=== PATIENT | female | born 1995 | race Caucasian/White ===

== ENCOUNTER 2020-05-22 14:18 | Outpatient (CLI) | payer BC, MEDICAID, OTHER, SELFPAY ==
--- NOTE | 2020-05-22 14:30 | US_ITS ---
WS: [id number] ULTRASOUND OB LIMITED TECHNIQUE: Limited ultrasound examination of the fetus. CLINICAL INFORMATION: DATING COMPARISON: None. FINDINGS: Cervix is long and closed measuring 4.8cm. pole with [place]-rump length 2.7 cm. Yolk sac is present. heart rate 171 BPM. Right ovary measures 2.1 x 1.4 x 2.4 cm Left ovary measuring 2.4 x 1.5 x 2.6 cm Uterus measures 12.8 x 6.3 x 7.3 cm EGA by ultrasound: 9w4d KATELYN by ultrasound: 12/21/2020 US/US OB <= 14 weeks fetus [id number] IMPRESSION: 1. Single interuterine gestation with pole. 2. Estimated gestational age 9 weeks 4 days. 3. Estimated delivery December 21, 2020.
== END 2020-05-22 14:19 | disposition home or self-care (01) ==
LOC: RAD 14:26
PROVIDERS: PCP Family Medicine; Visit Provider Family Medicine
DX: Z34.91 Encounter for supervision of normal pregnancy, unspecified, first trimester (principal); Z3A.09 9 weeks gestation of pregnancy
CPT/HCPCS: 76801

== ENCOUNTER 2020-07-21 14:51 | Outpatient (CLI) | payer BC, MEDICAID, SELFPAY ==
--- NOTE | 2020-07-21 14:56 | US_ITS ---
WS: [id number] OB ultrasound, 07/21/2020 Clinical Data: Comparison: OB ultrasound, 05/22/2020. Findings: There is a single intrauterine in the breech presentation. The placenta is Anterior and gra de 0. No placenta previa is seen. There is a normal amount of amnionic fluid. The heart rate is 153 beats per minute. Measurements of growth and development: BPD: 4.3 cm HC: 15.8 cm AC: 12.8 cm FL: 2.8 cm The estimated weight is 246 or approximately 9 ounces The estimated gestational age is 18w5d wi th an KATELYN of approximately 12/17/2020. anatomy show a normal stomach, kidneys, bladder, cord insertion, three-vessel cord, entire spin e, lateral cerebral ventricles, cerebellum and cisterna magna. The heart was difficult to image and t he RVOT/LVOT was not well seen. The profile was not well seen in the nose and lips not seen. US/US OB >= 14 weeks fetus [id number] Impression: 1. Single intrauterine in breech presentation. 2. Estimated gestational age 18w5d with an KATELYN of 12/17/2020. 3. heart rate 153 beats per minute.
== END 2020-07-21 14:52 | disposition home or self-care (01) ==
LOC: RAD 14:54
PROVIDERS: PCP Family Medicine; Visit Provider Family Medicine
DX: O32.1XX0 Maternal care for breech presentation, not applicable or unspecified (principal); Z3A.18 18 weeks gestation of pregnancy
CPT/HCPCS: 76805

== ENCOUNTER 2020-09-01 13:17 | Outpatient (CLI) | payer BC, MEDICAID, SELFPAY ==
--- NOTE | 2020-09-01 13:24 | US_ITS ---
WS: [id number] OB ultrasound, 09/01/2020 Clinical Data: FOLLOW UP ON CARDIAC OUTFLOW TRACT PROFILE Comparison: OB ultrasound, 07/21/2020. Findings: The cervix is 3.22 cm and closed. The placenta is anterior. The heart rate is 144 beats per min [place]. anatomy did show the 4 chamber heart, RVOT and LVOT. The lip, nose and profile were unremarkabl [place] [id number] Impression: 1. The heart showed 4 chambers, RVOT and LVOT.. 2. The lip, nose and profile were unremarkable.. 3. heart rate 144 beats per minute.
== END 2020-09-01 13:18 | disposition home or self-care (01) ==
LOC: RAD 13:20
PROVIDERS: PCP Family Medicine; Visit Provider Family Medicine
DX: Z36.89 Encounter for other specified antenatal screening (principal)
CPT/HCPCS: 76816

== ENCOUNTER 2020-12-13 05:02 | Inpatient (IN) | payer BC, MEDICAID, SELFPAY ==
--- NOTE | 2020-11-30 10:30 | ANES.PREANE2 ---
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
[2020-12-13] VITALS (25 sets, daily range): BP systolic 92–160; BP diastolic 56–80; PULSE 55–90; RESP 16; TEMP 36.2–36.7; O2SAT 97–100; BMI 35.3
[2020-12-13 05:44] LABS: Basophils % 0.5 %; Eosinophils # 0.1 10^3/uL (0.0-0.8); Eosinophils % 1.6 %; Hematocrit 37.6 % (37.0-47.0); Hemoglobin 12.4 g/dL (11.5-15.3); Lymphocytes # 2.2 10^3/uL (0.8-4.8); Lymphocytes % 27.1 %; Mean Corpuscular Hemoglobin 29.1 pg (28.0-34.0); Mean Corpuscular Volume 88.3 fL (81-99); Mean Platelet Volume 12.8 fL (7.4-10.4); Monocytes # 0.4 10^3/uL (0.2-0.9); Monocytes % 5.5 %; Neutrophils # 5.18 10^3/uL (1.8-7.7); Neutrophils % 64.9 %; Nucleated Red Blood Cells % 0 %; Platelet Count 192 10^3/cmm (130-400); Red Blood Count 4.26 10^6/uL (4.1-5.3); Red Cell Distribution Width 11.9 % (12.1-15.1)
[2020-12-13] MEDS: lactated ringers 1,000 ML 999 ML IV ×2 (05:50→07:01)
--- NOTE | 2020-12-13 06:55 | PM.HP ---
Providers/Chief Complaint Admitting Physician: Luc Yarbrough MD Primary Care Provider: Luc Yarbrough MD Chief Complaint: Scheduled History of Present Illness Isabela Back is a 25 year old at 39.4 weeks gestation by LMP consistent with 9-week ultrasound. Her is complicated by prior L TCS x2 for protracted labor/arrest of dilation/nonreassuring heart tones, their syncopal episode in early third trimester, GBS positive. The patient feels well at this time. She denies any chest pains, shortness of breath, nausea, vomiting, abdominal pain, dysuria, leakage of fluid, vaginal bleeding. The patient presents for a scheduled repeat low-transverse section. She does not have any concerns at this time and has been in her normal state of health. Medications/Allergies Home Medications Medication Instructions Recorded Confirmed Last Taken Type prenat.vits,zayra,zol-pywb-vixud 1 tab PO DAILY 12/13/20 12/13/20 12/12/20 History [ Vitamin] Allergies Allergy/AdvReac Type Severity Reaction Status Date / Time No Known Allergies Allergy Verified 12/13/20 06:04 PFSH Acute PFSH: Medical History (Updated 12/13/20 @ 06:59 by Luc Yarbrough MD) History of asthma Surgical History (Updated 12/13/20 @ 06:59 by Luc Yarbrough MD) History of [place] teeth removed Social History (Updated 12/13/20 @ 06:59 by Luc Yarbrough MD) Smoking and tobacco status: never smoked Alcohol intake: never Substance/Drug Use: never Female Reproductive History: : 4 Vitals/I&O/Wt Last Vital Signs Temp 97.2 F L 12/13/20 05:19 Pulse 90 12/13/20 05:19 BP 119/56 12/13/20 05:19 Weight last 48 hrs Weight 206 lb Physical Exam Narrative: EXAM NARRATIVE: General: Alert and oriented x3 Eyes: Pupils equal round and reactive to light and accommodation Mouth: Mucous membranes moist, pharynx non-erythematous Cardiac: Regular rate and rhythm without murmurs Lungs: Clear to auscultation bilaterally without wheezes, crackles or rhonchi Abdomen: Soft, non-tender, fundus consistent with gestational age, incisional scar clean and dry Extremities: Trace edema in the bilateral lower extremities Data : 12/13/20 05:30 A&P Additional A&P Information The patient is doing well at this time. We will proceed with repeat low transverse section. All questions were answered. The patient and her are in agreement with the current plan of care. Attestations Medical Necessity Statement*: The patient will be here for greater than 2 midnights due to routine intrapartum and management of labor and delivery. Coding Level of Care Code Acute Mechanical Development Engineer for Garrick Hancock
[2020-12-13] MEDS: citric acid-sodium citrate 30 mL UDC PO (07:00)
--- NOTE | 2020-12-13 07:01 | P.ANESUD_ITS ---
Pre-Anesthetic Update Pre-Anesthetic Assessment: Date of Surgery/Procedure: 12/13/20 Preop Geno gnosis: IUP Proposed Procedure: Operation Date: 12/13/20 07:00 Proposed Procedures p Section(Not Applicable) - Luc Yarbrough MD Last Intake: Intake Last Liquid Date 12/12/20 Last Liquid Time 00:00 Last Solid Date 12/12/20 Last Solid Time 20:00 Labs Last 48hrs: Laboratory Results - last 48 hr 12/13/20 05:30 WBC 8.0 RBC 4.26 Hgb 12.4 Hct 37.6 MCV 88.3 MCH 29.1 MCHC 33.0 RDW 11.9 L Plt Count 192 MPV 12.8 H Neut % (Auto) 64.9 Lymph % (Auto) 27.1 [place] % (Auto) 5.5 Eos % (Auto) 1.6 Baso % (Auto) 0.5 Neut # (Auto) 5.18 Lymph # (Auto) 2.2 [place] # (Auto) 0.4 Eos # (Auto) 0.1 Baso # (Auto) 0.0 Nucleated RBC % (a uto) 0 Nucleated RBCs # 0.0 Vitals: Temperature 97.2 F L 12/13/20 05:19 Temperature Source Skin 12/13/20 05:06 Pulse Rate 90 12/13/20 05:19 Pulse Rhythm 12/13/20 05:11 Respiratory Effort Non-Labored 12/13/20 05:11 Respiratory Depth Normal 12/13/20 05:11 Respiratory Patter n 12/13/20 05:11 Blood Pressure 119/56 12/13/20 05:19 Oxygen Delivery Me thod 12/13/20 05:11 Cardiac Studies: No Data to Display
[2020-12-13] MEDS: famotidine 20 mg/2 mL INJ IVP (07:02)
[2020-12-13] MEDS: metoclopramide 5 mg/mL SDV 2 mL 10 MG IVP (07:02)
--- NOTE | 2020-12-13 09:17 | P.OP_ITS ---
Operative Report Date of procedure: December 13, 2020 Pre-op Diagnosis: IUP Pre-op Diagnosis: 1. Intrauterine at 39.4 weeks gestation 2. Prior low-transverse section x2 3. GBS positive Post-op Diagnosis: 1. Intrauterine status post repeat low transverse section at 39.4 weeks gestation 2. Prior low-transverse section x2 3. GBS positive 4. Delivery of healthy infant male weighing 6 pounds 14 ounces with Apgars of 9 and 9 Post-op Findings: Significant scar tissue around the uterus. Procedure Done: Repeat low transverse section Specimens removed/disposition: Placenta discarded Pathology: none sent Surgeon: Luc Yarbrough Anesthesia: Other (Spinal) Estimated blood loss (mL): 700 Complications: None Condition: stable Disposition: floor Brief History: Isabela Back is a 25 year old G4 now P3 status post repeat low transverse section at 39.4 weeks gestation by LMP consistent with 9-week ultrasound. Her was complicated by prior LTCS x2 for p rotracted labor/arrest of dilation/nonreassuring heart tones, their syncopal episode in early third trimester, GBS positive. The patient presented for a scheduled repeat low transverse section. Procedure: After informed consent was obtained, the patient was taken to the operating room at 7:17 AM and the patient was prepped and draped in a normal sterile fashion in the dorsal supine position. A spinal epidural was placed and adequate anesthesia was confirmed. At 7:39 AM on 12/13/2020, a Pfannenstiel skin incision was made and carried through to the underlying layer of fascia using a scalpel. The fascial incision was then extended laterally using curved Mayos. The fascia was then grasped with Osiris clamps and the underlying rectus muscles were dissected off taking care to avoid injury to the underlying tissues. The peritoneum was entered initially using Metzenbaums to bluntly make an opening. It was then bluntly manually. The bladder blade was placed and the vesicouterine peritoneum was well below the lower uterine segment of the uterus. Significant scar tissue was noted enveloping the uterus. The uterine incision was made in the lower uterine segment in a transverse fashion with the scalpel at 7:47 AM. The amniotic membrane was entered bluntly and a moderate amount of clear fluid was noted. The infant's head delivered atraumatically without difficulty at 7:48 AM. There was no nuchal cord. The mouth and nose were suctioned. The rest of the infant delivered without difficulty. The was crying immediately upon delivery. The cord was clamped and cut and the infant was handed to the awaiting pediatric nurses. The placenta was then manually expressed. The uterus was then exteriorized from the abdomen and a wet lap was used to clear the uterus of clots and debris. The bladder blade was reinserted and the uterine incision was closed using 0 chromic in a running locking fashion. A second layer of the same suture was used in the same manner. Excellent hemostasis was obtained. The scar tissue that was enveloping the uterus was released and hemostasis was obtained. Next the posterior cul-de-sac was inspected and was cleared of any blood. The uterus was then placed back into the abdomen. The gutters were cleared of any further clots and debris and the uterine incision was again inspected and hemostasis was noted. The subfascial tissue was inspected for hemostasis and the peritoneum was re-approximated using 2-0 plain in a running fashion. The fascia was then re-approximated using 0 Vicryl in a running fashion. The subcutaneous tissue was inspected for hemostasis. Ruperto's fascia was then re- approximated using 3-0 plain in a running fashion. Good hemostasis was noted. The subcutaneous tissue was then re-approximated using a subcuticular stitch. The patient tolerated the procedure well and was recovered in stable condition. Estimated blood loss was 700 mL. Urine in the Arreola catheter was clear. The patient was taken to recovery in good condition.
[2020-12-13] MEDS: ondansetron 2 mg/ML SDV 2 mL 4 MG IVP (14:12)
[2020-12-13] MEDS: ketorolac 30 mg/mL INJ IVP ×2 (14:34→20:30)
[2020-12-13] MEDS: dextrose 5%-lactated ringers 1,000 ML 125 ML IV (14:54)
--- NOTE | 2020-12-13 14:59 | ANE.PACU2 ---
Inpatient post-anesthesia follow up: Airway intact: Yes Vital signs: Temperature 97.9 F Pulse Rate 71 Respiratory Rate 16 Blood Pressure 109/68 Pulse Oximetry 98 Oxygen Delivery Me thod Room Air Oxygen Flow Rate Fraction of Inspir ed Oxygen Hydration adequate: Yes Nausea and vomiting: No Pain level: 2 Mental status: Baseline
[2020-12-13] MEDS: docusate sodium 100 mg Capsule PO (18:37)
[2020-12-13 21:41] LABS: Hematocrit 34.4 % (37.0-47.0); Hemoglobin 11.1 g/dL (11.5-15.3); Mean Corpuscular HGB Conc 32.3 g/dL (30.0-36.0); Mean Corpuscular Hemoglobin 29.9 pg (28.0-34.0); Mean Corpuscular Volume 92.7 fL (81-99); Mean Platelet Volume 12.8 fL (7.4-10.4); Platelet Count 184 10^3/cmm (130-400); Red Blood Count 3.71 10^6/uL (4.1-5.3); White Blood Count 11.8 10^3/uL (4.0-10.0)
[2020-12-14 03:00] VITALS: BP 94/57; PULSE 60; RESP 16; TEMP 36.8; O2SAT 96
[2020-12-14] MEDS: ketorolac 30 mg/mL INJ IVP (03:07)
[2020-12-14] MEDS: prenatal vitamin Capsule 1 CAP PO (09:40)
[2020-12-14] MEDS: docusate sodium 100 mg Capsule PO (09:40)
[2020-12-14 09:55] VITALS: BP 96/60; PULSE 86; RESP 16; TEMP 36.6; O2SAT 97
[2020-12-14] MEDS: ibuprofen 800 mg tablet PO (11:20)
--- NOTE | 2020-12-14 12:16 | PM.DCS ---
Discharge Providers Date of Admission: 12/13/20 05:02 Date of Discharge: December 14, 2020 Attending Provider at Admission: Luc Yarbrough MD Attending Provider at Discharge: Luc Yarbrough MD Primary Care Provider: Luc Yarbrough MD Diagnoses at Discharge Discharge Diagnosis (1) Status post section: Status: Acute Other Information Additional DC diagnoses/information: 1. Intrauterine status post repeat low transverse section at 39.4 weeks gestation 2. Prior low-transverse section x2 3. GBS positive 4. Delivery of healthy male weighing 6 pounds 14 ounces with Apgars of 9 and 9 Reason for Visit Reason for Visit: Scheduled Hospital Course Hospital Course The patient was admitted for a scheduled repeat low-transverse section. The patient did have some scar tissue noted around the uterus but there were no complications related to the surgery. The scar tissue was released. The patient has done very well and is ambulating, voiding, passing gas and tolerating food by mouth. Her bleeding is decreasing well. Her pain is under good control. She is breast-feeding. Since she is doing well I gave her the option of discharge home this afternoon and she would prefer to be discharged home today versus waiting until tomorrow. All questions were answered and routine post care instructions were discussed. Patient will follow up with me at 2 weeks and sooner if needed. Physical Exam Narrative: EXAM NARRATIVE: General: Alert and oriented x3 Cardiac: Regular rate and rhythm without murmurs Lungs: Clear to auscultation bilaterally without wheezes, crackles or rhonchi Abdomen: Soft, mild tenderness. Uterus is firm and 3 cm below the umbilicus. Incision is clean and dry without signs of infection or dehiscence. Extremities: Trace edema in the bilateral lower extremities Urinary Catheter Management^: Arreola: Cath Placed During This Visit: yes, but has since been removed by the nurse Reason for Continuing Indwelling Catheter: Decision to DC Catheter Urinary Catheter Date of Insertion: 12/13/20 Urinary Catheter Time of Insertion: 07:27 Date Urinary Catheter Removed: 12/13/20 Time Urinary Catheter Discontinued: 18:00 Discharge Data Data Completed and Pending: Labs from last 24 hours 12/13/20 21:20 WBC 11.8 H RBC 3.71 L Hgb 11.1 L Hct 34.4 L MCV 92.7 MCH 29.9 MCHC 32.3 RDW 12.0 L Plt Count 184 MPV 12.8 H Vitals: Last Vital Signs Temp 98.2 F 12/14/20 03:00 Pulse 60 12/14/20 03:00 Resp 16 12/14/20 03:00 BP 94/57 12/14/20 03:00 Pulse Ox 96 12/14/20 03:00 Discharge Plan Discharge Patient Disposition: Home Condition: Good Prescriptions: New oxycodone-acetaminophen 5-325 mg Tablet 1 tab PO Q6H PRN (Reason: Moderate To Severe Pain) Qty: 10 RF: 0 ferrous sulfate 325 mg (65 mg iron) Tablet,Delayed Release (Dr/Ec) 325 mg PO BIDWM Qty: 30 RF: 0 ibuprofen 800 mg Tablet 800 mg PO TID Qty: 60 RF: 0 Continued Vitamin Tablet 1 tab PO DAILY RF: 0 Discharge Orders: Discharge Order (Routine); Ordered 12/14/20 Ordered By: Luc Yarbrough Referrals: Luc Yarbrough MD [Primary Care Provider] - 2 weeks (Please make a follow up appt with Dr Yarbrough for 2 weeks and 6 weeks . ) Discharge Diet: Advance as tolerated Discharge Activity: Limit activity as instructed Patient Instructions: Section (DC), Pre-eclampsia and Eclampsia (DC), Bleeding (DC), OB Discharge Report, OB Anesthesia Instructions, OB Food/Drug Interaction Guide, OB Home Care, OB Proud Parent Packet Activity Restrictions/Additional Instructions: Do not lift anything heavier than your infant in the car seat for the first 3 weeks, then gradually increase. Nothing per vagina for 6 weeks. If you have any concern for infection in your incision site, please contact Dr. Yarbrough right away. Discharge Attestations Time Spent in Discharge Care*: greater than 30 min Quality Metrics Clinical Quality Measures During this hospital stay, did patient experience: None Coding Level of Care Code Acute Commercial Field Inspector for Chg Fwd Diagnoses Status post section Z98.891
--- NOTE | 2020-12-14 13:43 | PC.NURSE ---
Mom reports is going well. She has contact information.
[2020-12-14 15:30] VITALS: BP 112/74; PULSE 93; RESP 16; TEMP 36.6; O2SAT 95
== END 2020-12-14 15:59 | disposition home or self-care (01) | DRG 788 ==
PROVIDERS: Admitting Provider Family Medicine; PCP Family Medicine; Visit Provider Family Medicine
PROC: 10D00Z1 Extraction of Products of Conception, Low, Open Approach (ICD-10-PCS; CPT 59514; principal; 2020-12-13 07:00)
DX: O34.211 Maternal care for low transverse scar from previous cesarean delivery (principal); Z3A.39 39 weeks gestation of pregnancy; Z37.0 Single live birth; O99.824 Streptococcus B carrier state complicating childbirth
CPT/HCPCS: 12345; 36415; 59409; 85025; 85027; 86900; J1885; J2274; J2370; J2405; J2765; J3490; J7030

== ENCOUNTER → 2022-03-21 15:06 | Outpatient (BNVA) | payer BC, MEDICAID, SELFPAY | PROVIDERS: PCP Family Medicine; Visit Provider Family Medicine | DX: Z34.90 Encounter for supervision of normal pregnancy, unspecified, unspecified trimester (principal) | CPT/HCPCS: 80053; 83735; 85025 ==

== ENCOUNTER → 2022-04-03 09:51 | Outpatient (BNVA) | payer BC, MEDICAID, SELFPAY | PROVIDERS: PCP Family Medicine; Visit Provider Family Medicine | DX: Z34.80 Encounter for supervision of other normal pregnancy, unspecified trimester (principal) | CPT/HCPCS: 82950 ==

== ENCOUNTER 2022-05-01 13:20 | Outpatient (CLI) | payer BC, MEDICAID, SELFPAY ==
[2022-05-01 13:33] VITALS: BMI 44.6
[2022-05-01 13:42] VITALS: BP 114/65; PULSE 100
[2022-05-01 13:57] VITALS: BP 102/57; PULSE 94
--- NOTE | 2022-05-01 14:05 | US_ITS ---
WS: [id number] ULTRASOUND OB LIMITED TECHNIQUE: Limited ultrasound examination of the fetus. CLINICAL INFORMATION: right sided pain COMPARISON: None. FINDINGS: Cervix is long and closed measuring 4.1 cm Single interuterine gestation. presentation is vertex Placental location is anterior. Placenta grade: 0. heart rate 144 BPM. MESERET 10.2 cm just above the 5th percentile for gestational age. US/US OB limited [id number] IMPRESSION: 1. Normal cervix measuring 4.1 CM. 2. Placenta is anterior. Presentation is vertex. 3. Decreased amniotic fluid volume with MESERET 10.2 cm, just above the 5th percen tile for gestational age. Visually this appears decreased compared to March 06, 2022.
[2022-05-01 14:12] VITALS: BP 104/62; PULSE 96
[2022-05-01 14:26] LABS: Blood Urine 2+ (Negative); Glucose Urine UA Norm (Normal); Ketones Urine Negative (Negative); Protein Urine Neg (Negative); Specific Gravity, Urine 1.025 (1.005-1.030); Urine Appearance Clear (CLEAR); Urine Color Yellow (Yellow); pH Urine 6 (5-7)
[2022-05-01 14:27] VITALS: BP 104/61; PULSE 97
[2022-05-01 14:27] LABS: Add Urine Culture? Yes; Bacteria Urine TRACE /hpf; Bilirubin Urine Neg (Negative); Leukocyte Esterase Urine 2+ (Negative); Nitrate Urine Negative (Negative); Urobilinogen Urine Norm (Negative); WBC Urine 0-4 /hpf (0-5)
== END 2022-05-01 15:15 | disposition home or self-care (01) ==
LOC: OPOB 13:26 → OBGYN 13:27
PROVIDERS: PCP Family Medicine; Visit Provider Family Medicine
DX: O26.899 Other specified pregnancy related conditions, unspecified trimester (principal); Z3A.00 Weeks of gestation of pregnancy not specified; R10.9 Unspecified abdominal pain
CPT/HCPCS: 59025; 76815; 81001; 87086; 99211

== ENCOUNTER → 2022-05-30 11:18 | Outpatient (BNVA) | payer BC, MEDICAID, SELFPAY | PROVIDERS: PCP Family Medicine; Visit Provider Family Medicine | DX: Z34.90 Encounter for supervision of normal pregnancy, unspecified, unspecified trimester (principal) | CPT/HCPCS: 85025 ==

== ENCOUNTER → 2022-06-20 12:16 | Outpatient (BNVA) | payer BC, MEDICAID, SELFPAY | PROVIDERS: PCP Family Medicine; Visit Provider Family Medicine | DX: Z34.80 Encounter for supervision of other normal pregnancy, unspecified trimester (principal) | CPT/HCPCS: 87081 ==

== ENCOUNTER 2022-07-01 06:00 | Day surgery (SDC) | payer BC, MEDICAID, SELFPAY ==
--- NOTE | 2022-07-01 10:03 | P.ANESASSM_ITS ---
Pre-Anesthetic Assessment Height/Weight: Height 1.63 m Preop Diagnosis: IUP Familial anesthetic complications: none Was Beta Juni taken within 24 hours: N/A Was Clonidine taken within 24 hours: N/A Social No alcohol and No tobacco Exam alert, oriented x 3, clear to auscultation bilaterally and regular rate & rhythm Airway Submandibular: within normal limits Cervical ROM: within normal limits Mallampati: Class I Dentition: chipped Comments: Comments: Missing some teeth Chipped front teeth History/ROS No significant complaints Pulmonary Asthma (well controlled ) CV/HEM Hx of near syncope with hypotension early 3rd trimester resolved now None reported Hepatic None reported GI None reported Metabolic None reported Musc/skel None reported Neuropsych Headache 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 Risk of > 500 ml blood loss (7ml/kg in children): No Medications/Allergies Home Medications Medication Instructions Recorded Confirmed Last Taken Type prenat.vits,zayra,ncp-drar-ybsno 1 tab PO DAILY 12/13/20 06/29/22 12/12/20 History ferrous sulfate 325 mg (65 mg 325 mg PO BIDWM #30 tabs 12/14/20 06/29/22 Unknown Rx iron) tablet,delayed release Allergies Allergy/AdvReac Type Severity Reaction Status Date / Time benzoin Allergy Intermediate Rash after Verified 05/10/22 12:28 c/s [facility] Anesthesia Medical History History of asthma Surgical History History of [place] teeth removed Social History Smoking and tobacco status: never smoked Alcohol intake: never Data Anesthesia Cardiac Studies: No Data to Display
== END 2022-07-01 06:01 | disposition home or self-care (01) ==
LOC: OPS 08-01 09:41
PROVIDERS: PCP Family Medicine; Visit Provider Family Medicine
DX: Z01.818 Encounter for other preprocedural examination (principal)

== ENCOUNTER 2022-07-08 09:36 | Outpatient (CLI) | payer BC, MEDICAID, SELFPAY ==
[2022-07-08 09:40] VITALS: BMI 38.7
[2022-07-08 09:56] VITALS: RESP 17
[2022-07-08 10:14] VITALS: BP 110/70; PULSE 94
[2022-07-08 10:34] VITALS: BP 103/60; PULSE 93
[2022-07-08 10:40] VITALS: BP 103/60; PULSE 93
== END 2022-07-08 10:40 | disposition home or self-care (01) ==
LOC: OPOB 09:41 → OBGYN 09:42
PROVIDERS: PCP Family Medicine; Visit Provider Family Medicine
DX: O36.8190 Decreased fetal movements, unspecified trimester, not applicable or unspecified (principal); Z3A.00 Weeks of gestation of pregnancy not specified
CPT/HCPCS: 59025; 99211

== ENCOUNTER 2022-07-11 06:28 | Inpatient (IN) | payer BC, MEDICAID, SELFPAY ==
[2022-07-11] VITALS (30 sets, daily range): BP systolic 92–134; BP diastolic 48–74; PULSE 65–104; RESP 14–17; TEMP 35.9–36.9; O2SAT 94–97; BMI 38.7
[2022-07-11] MEDS: lactated ringers 1,000 ML 999 ML IV (06:07)
[2022-07-11 06:09] LABS: Basophils % 0.4 %; Eosinophils # 0.1 10^3/uL (0.0-0.8); Hematocrit 34.5 % (37.0-47.0); Lymphocytes # 1.8 10^3/uL (0.8-4.8); Lymphocytes % 21.7 %; Mean Corpuscular HGB Conc 31.9 g/dL (30.0-36.0); Mean Corpuscular Hemoglobin 26.5 pg (28.0-34.0); Mean Corpuscular Volume 83.1 fl (81-99); Mean Platelet Volume 12.9 fL (7.4-10.4); Monocytes # 0.5 10^3/uL (0.2-0.9); Monocytes % 5.6 %; Neutrophils # 5.91 10^3/uL (1.8-7.7); Neutrophils % 70.7 %; Nucleated Red Blood Cells % 0 %; Platelet Count 194 10^3/cmm (130-400); Red Blood Count 4.15 10^6/uL (4.1-5.3); Red Cell Distribution Width 12.3 % (12.1-15.1); White Blood Count 8.4 10^3/uL (4.0-10.0)
--- NOTE | 2022-07-11 06:45 | P.HP_ITS ---
Providers/Chief Complaint Admitting Physician: Luc Yarbrough MD Primary Care Provider: Luc Yarbrough MD Chief Complaint: repeat History of Present Illness Isabela Back is a 27 year old @ 39.2 weeks by 8 wk US inconsistent with LMP. Her preg is c/b prior LTCSx3 for protracted labor/arrest of dilation/non- reassuring FHT's, low progesterone on supplementation in 1st TM The patient presents for a scheduled repeat low-transverse section. She has had no significant complications. The patient is currently feeling well. She denies any chest pains, shortness of breath, nausea, vomiting, diarrhea, constipation, dysuria, vaginal bleeding, leakage of fluid. Medications/Allergies Home Medications Medication Instructions Recorded Confirmed Last Taken Type prenat.vits,zayra,bav-jaxi-odjjj 1 tab PO DAILY 12/13/20 07/11/22 07/10/22 History ferrous sulfate 325 mg (65 mg 325 mg PO BIDWM #30 tabs 12/14/20 07/04/22 Unknown Rx iron) tablet,delayed release Allergies Allergy/AdvReac Type Severity Reaction Status Date / Time benzoin Allergy Intermediate Rash after Verified 07/11/22 06:04 c/s PFSH Acute PFSH: Medical History History of asthma Surgical History (Updated 07/11/22 @ 06:48 by Luc Yarbrough MD) History of x 3 [place] teeth removed Social History Smoking and tobacco status: never smoked Alcohol intake: never Female Reproductive History: : 6 Vitals/I&O/Wt Last Vital Signs Temp 97.9 F 07/11/22 06:08 Pulse 85 07/11/22 06:33 Resp 14 07/11/22 06:06 BP 130/74 07/11/22 06:33 O2 Del Method 07/11/22 05:42 Weight last 48 hrs Weight 226 lb Physical Exam Narrative: General: Alert and oriented x3 Eyes: Pupils equal round and reactive to light and accommodation Mouth: Mucous membranes moist, pharynx non-erythematous Cardiac: Regular rate and rhythm without murmurs Lungs: Clear to auscultation bilaterally without wheezes, crackles or rhonchi Abdomen: Soft, non-tender, fundus consistent with gestational age Extremities: Trace edema in the bilateral lower extremities Data : 07/11/22 05:57 A&P Assessment and plan (1) Supervision of normal intrauterine in multigravida: The patient is doing well at this time. Vital signs are stable. Her initial hemoglobin is mildly low at 11.2. heart tones are reactive with a category 1 tracing. We will plan to proceed with the repeat low-transverse section. All questions were answered. The patient and her are in agreement with current the plan of care. Status: Acute Attestations Medical Necessity Statement*: The patient will be here for greater than 2 midnights due to routine intrapartum and management of labor and delivery. Coding Level of Care Code Acute Branch Service Representative for Garrick Hancock Diagnoses Supervision of normal intrauterine in multigravida Z34.80
[2022-07-11] MEDS: citric acid-sodium citrate 30 mL UDC PO (06:50)
[2022-07-11] MEDS: ceFAZolin 2,000 MG in sodium chloride 0.9% (plus) 50 ML 100 MG IV (06:50)
[2022-07-11] MEDS: metoclopramide 5 mg/mL SDV 2 mL 10 MG IVP (06:51)
[2022-07-11] MEDS: famotidine 20 mg/2 mL INJ IVP (06:53)
[2022-07-11 06:57] LABS: Rubella IgG 171.7 IU/mL (0.0-10.0)
--- NOTE | 2022-07-11 07:33 | ANES.PAUD2 ---
Documented by User: Miguel Bacon CRNA 07/11/22 07:33 Pre-Anesthetic Update Pre-Anesthetic Assessment: Date of Surgery/Procedure: 07/11/22 Preop Diagnosis: IUP Proposed Procedure: Operation Date: 07/11/22 07:00 Proposed Procedures p Section Repeat(Not Applicable) - Luc Yarbrough MD Any changes to Pre-Anesthetic Assessment?: No Last Intake: Intake Last Liquid Date 07/11/22 Last Liquid Time 00:00 Last Solid Date 07/10/22 Last Solid Time 21:00 Labs Last 48hrs: Short CBC 07/11/22 Range/Units 05:57 WBC 8.4 (4.0-10.0) 10^3/ uL Hgb 11.0 L (11.5-15.3) g/dL Hct 34.5 L (37.0-47.0) % MCV 83.1 (81-99) fl Plt Count 194 (130-400) 10^3/c mm Neut % (Auto) 70.7 % Neut # (Auto) 5.91 (1.8-7.7) 10^3/u L Vitals: Temperature 97.9 F 07/11/22 06:08 Pulse Rate 98 07/11/22 06:48 Pulse Rhythm 07/11/22 05:42 Pulse Strength 3+ Normal 07/11/22 05:42 Respiratory Rate 14 07/11/22 06:06 Respiratory Effort Non-Labored 07/11/22 05:42 Respiratory Depth Normal 07/11/22 05:42 Respiratory Patter n 07/11/22 05:42 Blood Pressure 119/72 07/11/22 06:48 Oxygen Delivery Me thod 07/11/22 05:42 Exam: Pre-Anes Outpt Exam: alert, oriented x 3, clear to auscultation bilaterally and regular rate & rhythm Cardiac Studies: No Data to Display Documented by User: John Barrett DO 07/11/22 14:25 Pre-Anesthetic Update Pre-Anesthetic Assessment: Date of Surgery/Procedure: 07/11/22 Cardiac Studies: No Data to Display
--- NOTE | 2022-07-11 09:02 | P.PCN_ITS ---
PACU note Narrative: VSS, Good respiratory effort, report to GRINDING MACHINE OPERATOR PORTABLE Exam: awake
--- NOTE | 2022-07-11 09:02 | PM.PACU ---
PACU note Narrative: VSS, Good respiratory effort, report to MATERIALS BUYER Exam: awake
--- NOTE | 2022-07-11 09:07 | PM.OP ---
Operative Report Date of procedure: July 11, 2022 Pre-op diagnosis: 1. Intrauterine at 39.2 weeks gestation 2. Prior low-transverse section x3 3. Low progesterone on supplementation first trimester 4. Mild anemia Post-op diagnosis: 1. Intrauterine status post repeat low-transverse section at 39.2 weeks gestation 2. Status post low-transverse section x4 3. Low progesterone on supplementation first trimester 4. Mild anemia 5. Delivery of healthy female weighing 7 pounds 8 ounces with Apgars of 9 and 9 6. Intra-abdominal adhesions Post-op findings: Intact placenta Healthy female weighing 7 pounds 8 ounces with Apgars of 9 and 9 Adhesions wrapping over the anterior uterus Procedure done: 1. Repeat low-transverse section 2. Adhesiolysis of adhesions wrapping over the anterior uterus Specimens removed/disposition: Placenta discarded Surgeon: Luc Yarbrough MD Estimated blood loss (mL): 600 Findings: Isabela Back is a 27 year old G6 now P4 status post repeat low-transverse section @ 39.2 weeks by 8 wk US inconsistent with LMP. Her preg was c/b prior LTCSx3 for protracted labor/arrest of dilation/non-reassuring FHT's, low progesterone on supplementation in 1st TM Brief History: The patient presented for a scheduled repeat low-transverse section. She felt well and was having no acute complications. Procedure: After informed consent was obtained, the patient was taken to the operating room and the patient was prepped and draped in a normal sterile fashion in the dorsal supine position.? A spinal was placed and adequate anesthesia was obtained.? At 7:28 AM on 07/11/2022 a Pfannenstiel skin incision was made and carried through to the underlying layer of fascia using a scalpel.? The fascial incision was then extended laterally using curved Mayos.? Thick scar tissue was noted. The fascia was then grasped with Osiris clamps and the underlying rectus muscles were dissected off taking care to avoid injury to the underlying tissues.? The peritoneum was entered bluntly with one digit.? It was then bluntly.? The bladder blade was placed and the vesicouterine peritoneum was well below the lower uterine segment of the uterus.? The uterine incision was made in the lower uterine segment in a transverse fashion with the scalpel at 7:37 AM.? The placenta was noted to be anterior and the placenta was manually divided. The amniotic membrane was entered bluntly and a small amount of clear fluid was noted.? Uterine pressure was placed and the infant's head delivered without complication at 7:39 AM on 07/11/2022.? There was no nuchal cord.? The mouth and nose were suctioned.? The rest of the infant delivered without difficulty.? The infant took a breath and was crying immediately upon delivery.? The cord was clamped and cut and the infant was handed to the awaiting pediatric nurses.? The placenta was then manually expressed.? The uterus was exteriorized from the abdomen.? A wet lap was used to clear the uterus of clots and debris.? The bladder blade was reinserted and the uterine incision was closed using 0 chromic in a running locking fashion.? The uterus was noted to be firm.? A second layer of the same suture was used in the same manner.? Excellent hemostasis was obtained. A thick band of scar tissue was noted to be adhesed to the anterior uterus that crossed over the superior portion of the uterus. It was relatively avascular. This was divided using electrical cautery. No bleeding was noted. The uterus was placed back into the abdomen without complication. Next the posterior cul-de-sac was inspected and was cleared of any blood. The gutters were cleared of any further clots and debris and the uterine incision was again inspected and hemostasis was noted.? The subfascial tissue was inspected for hemostasis and the peritoneum was re-approximated using 2-0 plain in a running fashion.? The fascia was then re-approximated using 0 Vicryl in a running fashion.? The subcutaneous tissue was inspected for hemostasis.? Ruperto's fascia was then re-approximated using 3-0 plain in a running fashion.? Good hemostasis was noted.? The subcutaneous tissue was then re-approximated using a subcuticular stitch.? The patient tolerated the procedure well and was recovered in stable condition.? Estimated blood loss was 600 mL. Urine in the Arreola catheter was clear. The patient was taken to recovery in good condition.
[2022-07-11] MEDS: ondansetron 2 mg/ML SDV 2 mL 4 MG IVP ×2 (11:34→17:15)
--- NOTE | 2022-07-11 14:25 | ANE.PACU2 ---
Inpatient post-anesthesia follow up: Airway intact: Yes Vital signs: Temperature 96.6 F Pulse Rate 74 Respiratory Rate 14 Blood Pressure 97/53 Pulse Oximetry Oxygen Delivery Me thod Room Air Oxygen Flow Rate Fraction of Inspir ed Oxygen Hydration adequate: Yes Nausea and vomiting: No Pain level: 3 Mental status: Baseline
[2022-07-11] MEDS: ketorolac 30 mg/mL INJ IVP ×2 (15:44→21:05)
[2022-07-11] MEDS: dextrose 5%-lactated ringers 1,000 ML 125 ML IV (15:46)
--- NOTE | 2022-07-11 16:17 | PC.NURSE ---
Patient up to chair without difficulty. bedding changed, more jello given at this time. no further needs. Will continue to monitor. TAMELA GARZA
--- NOTE | 2022-07-11 17:29 | PC.NURSE ---
Patient up to ambulate hallways with standby assist. Patient tolerates activity well. TAMELA RN
[2022-07-11] MEDS: docusate sodium 100 mg Capsule PO (21:05)
[2022-07-11] MEDS: ferrous sulfate EC 325 mg Tablet PO (21:05)
[2022-07-11 22:19] LABS: Hematocrit 27.6 % (37.0-47.0); Hemoglobin 8.5 g/dL (11.5-15.3); Mean Corpuscular HGB Conc 30.8 g/dL (30.0-36.0); Mean Corpuscular Hemoglobin 26.5 pg (28.0-34.0); Mean Platelet Volume 13.1 fL (7.4-10.4); Platelet Count 151 10^3/cmm (130-400); Red Blood Count 3.21 10^6/uL (4.1-5.3); Red Cell Distribution Width 12.5 % (12.1-15.1)
[2022-07-11 22:48] LABS: Positive M 1
--- NOTE | 2022-07-11 23:34 | PC.NURSE ---
While doing vitals on mom I mentioned that around midnight if it was okay with her I could take the baby to the nursery to get her weight and perform her 12 hour testing. She stated that she would prefer that we either wait until tomorrow when her or her can go in the nursery with the baby or perform what we can in the room. She does not want to go with baby tonight as she is tired. I told her I could perform what test I can in the room with her closer to morning and then we can do the rest tomorrow.
[2022-07-12] VITALS (10 sets, daily range): BP systolic 86–121; BP diastolic 53–63; PULSE 74–84; RESP 17–18; TEMP 36.3–36.8; O2SAT 97
[2022-07-12] MEDS: docusate sodium 100 mg Capsule PO ×2 (08:36→18:11)
[2022-07-12] MEDS: ferrous sulfate EC 325 mg Tablet PO ×2 (08:36→18:11)
[2022-07-12] MEDS: ibuprofen 800 mg tablet PO ×3 (08:36→20:55)
[2022-07-12] MEDS: prenatal vitamin Capsule 1 CAP PO (08:36)
--- NOTE | 2022-07-12 14:53 | P.PN_ITS ---
Subjective Subjective: The patient is doing well overall today. Her pain is improving. She is ambulating, voiding, passing gas and tolerating food by mouth. Vitals/I&O/Wt Last Vital Signs Temp 97.3 F L 07/12/22 03:14 Pulse 74 07/12/22 03:14 Resp 18 07/12/22 08:00 BP 108/55 07/12/22 03:14 Pulse Ox 94 07/11/22 09:30 O2 Del Method 07/11/22 09:30 07/11/22 07/12/22 07/12/22 22:59 06:59 14:59 Intake Total 480 / 1680 720 / 2400 Output Total 400 / 950 300 / 1250 Balance 80 / 730 420 / 1150 Weight last 48 hrs Weight 226 lb Physical Exam Narrative: General: Alert and oriented x3 Cardiac: Regular rate and rhythm without murmurs Lungs: Clear to auscultation bilaterally without wheezes, crackles or rhonchi Abdomen: Soft, mild tenderness over uterus. The uterus is firm and 2 cm below the umbilicus. Incision is clean and dry without signs of infection or dehiscence. Extremities: Trace edema in the bilateral lower extremities Urinary Catheter Management: Arreola: Cath Placed During This Visit: yes, but has since been removed by the nurse Reason for Continuing Indwelling Catheter: Decision to DC Catheter Urinary Catheter Date of Insertion: 07/11/22 Urinary Catheter Time of Insertion: 07:20 Date Urinary Catheter Removed: 07/11/22 Time Urinary Catheter Discontinued: 20:21 Data : 07/11/22 21:48 A&P Assessment and plan (1) Status post section: The patient is doing well after having section x4. She is showing no signs of complications. We will continue with routine post care and plan for discharge home tomorrow. All questions were answered. Status: Acute Attestations Medical Necessity Statement*: The patient will be here for greater than 2 midnights due to routine intrapartum and management of labor and delivery. Coding Level of Care Code Acute Unit Coordinator for Garrick Hancock Diagnoses Status post section Z98.891
[2022-07-13] VITALS (7 sets, daily range): BP systolic 94–122; BP diastolic 61–78; PULSE 75–83; RESP 17–18; TEMP 36.6–36.8; O2SAT 96
[2022-07-13] MEDS: ibuprofen 800 mg tablet PO (08:17)
[2022-07-13] MEDS: ferrous sulfate EC 325 mg Tablet PO (08:17)
[2022-07-13] MEDS: docusate sodium 100 mg Capsule PO (08:17)
[2022-07-13] MEDS: prenatal vitamin Capsule 1 CAP PO (08:17)
--- NOTE | 2022-07-13 09:20 | P.DS_ITS ---
Discharge Providers Date of Admission: 07/11/22 06:28 Date of Discharge: July 13, 2022 Attending Provider at Admission: Luc Yarbrough MD Attending Provider at Discharge: Luc Yarbrough MD Primary Care Provider: Luc Yarbrough MD Diagnoses at Discharge Discharge Diagnosis (1) Status post section: Status: Acute Other Information Additional DC diagnoses/information: 1.? Intrauterine status post repeat low-transverse section at 39.2 weeks gestation 2.? Status post low-transverse section x4 3.? Low progesterone on supplementation first trimester 4.? Mild anemia 5.? Delivery of healthy infant female weighing 7 pounds 8 ounces with Apgars of 9 and 9 6.? Intra-abdominal adhesions? Reason for Visit Reason for Visit: repeat Brief History: Isabela Back is a 27 year old G6 now P4 status post repeat low-transverse section @ 39.2 weeks by 8 wk US inconsistent with LMP. Her preg was c/b prior LTCSx3 for protracted labor/arrest of dilation/non-reassuring FHT's, low progesterone on supplementation in . The patient presented for a scheduled repeat low-transverse section. She had no complications at the time of presentation other than GBS positive. Her membranes were intact. Hospital Course Hospital Course The patient had a routine repeat low-transverse section. She also had adhesiolysis for adhesions over the uterus. The patient has had an uncomplicated post course. She is ambulating, voiding, passing gas and tolerating food by mouth. Her pain is well controlled. Her bleeding is decreasing well. I reviewed discharge instructions with the patient and she is in agreement with current plan of care. We will continue with routine care and follow-up in clinic next week. Physical Exam Narrative: General: Alert and oriented x3 Cardiac: Regular rate and rhythm without murmurs Lungs: Clear to auscultation bilaterally without wheezes, crackles or rhonchi Abdomen: Soft, mild tenderness over uterus. The uterus is firm and 2 cm below the umbilicus. Incision is clean and dry without signs of infection or dehiscence. Extremities: Trace edema in the bilateral lower extremities Urinary Catheter Management: Arreola: Cath Placed During This Visit: yes, but has since been removed by the nurse Reason for Continuing Indwelling Catheter: Decision to DC Catheter Urinary Catheter Date of Insertion: 07/11/22 Urinary Catheter Time of Insertion: 07:20 Date Urinary Catheter Removed: 07/11/22 Time Urinary Catheter Discontinued: 20:21 Discharge Data Studies Completed and Pending Laboratory Results WBC 9.0 10^3/uL (4.0-10.0) 07/11/22 21:48 RBC 3.21 10^6/uL (4.1-5.3) L 07/11/22 21:48 Hgb 8.5 g/dL (11.5-15.3) L 07/11/22 21:48 Hct 27.6 % (37.0-47.0) L 07/11/22 21:48 MCV 86.0 fl (81-99) 07/11/22 21:48 MCH 26.5 pg (28.0-34.0) L 07/11/22 21:48 MCHC 30.8 g/dL (30.0-36.0) 07/11/22 21:48 RDW 12.5 % (12.1-15.1) 07/11/22 21:48 Plt Count 151 10^3/cmm (130-400) 07/11/22 21:48 MPV 13.1 fL (7.4-10.4) H 07/11/22 21:48 Neut % (Auto) 70.7 % 07/11/22 05:57 Lymph % (Auto) 21.7 % 07/11/22 05:57 [place] % (Auto) 5.6 % 07/11/22 05:57 Eos % (Auto) 1.0 % 07/11/22 05:57 Baso % (Auto) 0.4 % 07/11/22 05:57 Neut # (Auto) 5.91 10^3/uL (1.8-7.7) 07/11/22 05:57 Lymph # (Auto) 1.8 10^3/uL (0.8-4.8) 07/11/22 05:57 [place] # (Auto) 0.5 10^3/uL (0.2-0.9) 07/11/22 05:57 Eos # (Auto) 0.1 10^3/uL (0.0-0.8) 07/11/22 05:57 Baso # (Auto) 0.0 10^3/uL (0.0-0.1) 07/11/22 05:57 Nucleated RBC % (auto) 0 % 07/11/22 05:57 Nucleated RBCs # 0.0 /100WBC 07/11/22 05:57 Rubella IgG Antibody 171.7 IU/mL (0.0-10.0) H 07/11/22 05:57 Blood Type O Positive 07/11/22 05:57 Rho(D) Type Positive 07/11/22 05:57 Antibody Screen Negative 07/11/22 05:57 Vitals Last Vital Signs Temp 97.9 F 07/13/22 08:18 Pulse 83 07/13/22 08:19 Resp 17 07/13/22 08:28 BP 108/66 07/13/22 08:19 Pulse Ox 96 07/13/22 04:30 O2 Del Method 07/13/22 04:30 Discharge Plan Discharge Patient Disposition: Home Condition: Good Prescriptions: New hydrocodone-acetaminophen 5-325 mg Tablet 1 tab PO Q6H PRN (Reason: Moderate To Severe Pain) Qty: 10 0RF docusate sodium 100 mg Capsule 100 mg PO BID Qty: 30 0RF ibuprofen 800 mg Tablet 800 mg PO TID Qty: 60 0RF Continued prenat.vits,zayra,cdo-lyab-nzibk Tablet 1 tab PO DAILY Qty: 90 0RF ferrous sulfate 325 mg (65 mg iron) Tablet,Delayed Release (Dr/Ec) 325 mg PO BIDWM Qty: 60 0RF Discharge Orders: Discharge Order (Routine); Ordered 07/13/22 Ordered By: Luc Yarbrough Discharge Diet: Regular Discharge Activity: Limit activity as instructed Patient Instructions: Depression (DC), Bleeding (DC), Preeclampsia and Eclampsia After Delivery (GEN), OB Discharge Report, OB Food/Drug Interaction Guide, OB Care at Home, Opioid Safety, OB Your Care - [facility] Activity Restrictions/Additional Instructions: Do not lift anything heavier than your in the car seat for the first 3 weeks, then gradually increase. If having concern for infection in your incision site, please contact Dr. Yarbrough's office right away. Nothing per vagina for 6 weeks. Discharge Attestations Time Spent in Discharge Care*: greater than 30 min Quality Metrics Clinical Quality Measures [ No reported AMI, CVA or VTE this stay] Coding Level of Care Code Acute Chg FW DC note Diagnoses Status post section Z98.891
== END 2022-07-13 10:50 | disposition home or self-care (01) | DRG 788 ==
LOC: OPOB 06:28 → OBGYN 06:30
PROVIDERS: Admitting Provider Family Medicine; PCP Family Medicine; Visit Provider Family Medicine
PROC: 10D00Z1 Extraction of Products of Conception, Low, Open Approach (ICD-10-PCS; CPT 59514; principal; 2022-07-11 07:00)
DX: O34.211 Maternal care for low transverse scar from previous cesarean delivery (principal); Z3A.39 39 weeks gestation of pregnancy; Z37.0 Single live birth; O99.02 Anemia complicating childbirth; D64.9 Anemia, unspecified
CPT/HCPCS: 36415; 51702; 59025; 59409; 85025; 85027; 86762; 86850; 86900; 96374; 96376; J1885; J2274; J2405; J2765; J3010; J3490; J7030

== ENCOUNTER → 2022-07-26 11:14 | Outpatient (BNVA) | payer BC, MEDICAID, SELFPAY | PROVIDERS: PCP Family Medicine; Visit Provider Family Medicine | DX: O86.00 Infection of obstetric surgical wound, unspecified (principal); Z98.891 History of uterine scar from previous surgery | CPT/HCPCS: 87070; 87075; 87077; 87184; 87205 ==

== ENCOUNTER 2022-11-29 16:50 | Emergency (ER) | payer BC, MEDICAID, SELFPAY ==
[2022-11-29 17:06] VITALS: BP 137/83; PULSE 79; RESP 16; TEMP 36.8; O2SAT 99
--- NOTE | 2022-11-29 18:18 | W.ED.ANIMALB ---
HPI - Animal Bite General: Chief Complaint: Animal Bite Stated Complaint: Bite by cat on thumb Time Seen by Provider: 11/29/22 18:10 History of Present Illness: 27-year-old female comes in today for injury to the left thumb. Patient was bit by a cat that she was holding that got spooked by a dog and bit down on her finger. Cat has not had any immunizations. Escape from the family and they were unable to find the cat. Patient has a puncture wound to the left distal thumb. Tetanus is up-to-date. Review of Systems Musc: Reports: extremity pain Skin/Breast: Reports: new lesions [facility] ED PFSH: Medical History History of asthma Surgical History History of x 4 [place] teeth removed Social History Smoking and tobacco status: never smoked Alcohol intake: never Physical Exam Const: COMMON NORMALS: alert HENMT: COMMON NORMALS: normocephalic HEAD & SCALP: normocephalic Resp: COMMON NORMALS: normal respiratory effort Cardio: COMMON NORMALS: regular rate RATE: regular rate Extremity: LEFT UPPER EXTREMITY: Yes hand & digits (Puncture wound to the distal left thumb, minimal damage to nail) Left hand and digits: Yes inspection, Yes palpation and Yes ROM Neuro: SENSORIUM/ORIENTATION: Yes alert Skin: TRAUMA: puncture (Distal left thumb radial nailbed) Course Vital Signs: Vital signs: Vital Signs Temperature 98.2 F 11/29/22 17:06 Pulse Rate 79 11/29/22 17:06 Respiratory Rate 16 11/29/22 17:06 Blood Pressure 137/83 11/29/22 17:06 Pulse Oximetry 99 11/29/22 17:06 Oxygen Delivery Me thod 11/29/22 17:06 MDM - Animal Bite Medical Decision Making Patient comes in today for injury to the left thumb. Patient was bit by a cat that she was holding when a dog came up and spooked the cat causing her to bite her finger and run away. No immunizations were given to the cat. They were unable to retain the cat for monitoring. Differential diagnosis includes need for prophylaxis vaccine, need for prophylactic antibiotic, puncture wound to finger, nail injury finger. X-ray of the finger noted no bony injury, or foreign body. Reviewed exam with patient recommended treatment with antibiotics and updating vaccines. Patient did agree to go ahead and initiate treatment for rabies exposure. Patient be given 20 units/kg of immunoglobulin, and the first initiation of vaccination of rabies. Patient will continue with 3 more shots of vaccine. Patient was started on Augmentin for cover for infection. Patient reported understanding agreed to plan. Discharge Plan Discharge Patient Disposition: Home Clinical Impression: Cat bite Qualifiers: Encounter type: initial encounter Qualified Code(s): W55.01XA - Bitten by cat, initial encounter Condition: Stable Prescriptions: New amoxicillin-pot clavulanate 875-125 mg tablet 1 tab PO BID Qty: 14 0RF No Action prenat.vits,zayra,nsm-mrom-lqptf Tablet 1 tab PO DAILY Qty: 90 0RF Discharge Orders: Discharge ED (Routine); Ordered 11/29/22 Ordered By: Garett Pastrana Referrals: Luc Yarbrough MD [Primary Care Provider] - Discharge Diet: Usual diet Discharge Activity: Increase activity as tolerated Patient Instructions: Rabies Vaccine (By injection), Animal Bite (ED) Activity Restrictions/Additional Instructions: Clean wound twice daily with soap and water. Apply antibiotic ointment twice a day to open wounds. Use acetaminophen and ibuprofen for pain. You will need to return to the emergency department or urgent care for the remainder of the rabies vaccination. You will return on day 3, day 7, and day 14. Follow-up with primary care as needed. Return to ED for new concerns or worsening symptoms. Coding Level of Care Code ED Turret Punch Operator for Garrick Hancock Exam Detailed
--- NOTE | 2022-11-29 18:19 | XRR_ITS ---
PROCEDURE INFORMATION: Exam: XR Left Hand Exam date and time: 11/29/2022 6:39 PM Age: 27 years old Clinical indication: Pain; Hand; Left; Additional info: Animal bite to nailbed of thumb, happened to TECHNIQUE: Imaging protocol: Radiologic exam of the Left hand. Views: 3 or more views. COMPARISON: No relevant prior studies available. FINDINGS: Bones/joints: Osseous structures are intact. Negative for fracture. Joint spaces are preserved. Soft tissues: Normal. XR/XR hand LT min 3V* [id number] IMPRESSION: No acute findings.
[2022-11-29] MEDS: bacitracin ointment Pkt 1 EACH TOPICAL (18:37)
[2022-11-29] MEDS: amoxicillin-clav 875-125 mg Tablet 1 TAB PO (18:37)
[2022-11-29] MEDS: rabies vaccine 2.5 unit SDV IM (18:38)
== END 2022-11-29 19:06 | disposition home or self-care (01) ==
PROVIDERS: Emergency Provider Nurse Practitioner Family; PCP Family Medicine
DX: S61.052A Open bite of left thumb without damage to nail, initial encounter (principal); W55.01XA Bitten by cat, initial encounter; Z20.3 Contact with and (suspected) exposure to rabies; Z29.14 Encounter for prophylactic rabies immune globulin; Z23 Encounter for immunization
CPT/HCPCS: 73130; 90375; 90471; 90675; 96372; 99284

== ENCOUNTER 2023-02-06 08:50 | Outpatient (CLI) | payer BC, MEDICAID, SELFPAY ==
--- NOTE | 2023-02-06 08:45 | MR_ITS ---
WS: [id number] MRI BRAIN WITH AND WITHOUT CONTRAST HISTORY: MRI brain - Thalamic hyperdense lesion on CT COMPARISON: CT head 03/20/2012. TECHNIQUE: Multiplanar imaging performed through the brain with MultiHance 20 ml's IV. No acute infarcts are seen. Lafleur-white matter differentiation is well preserved. T1 hyperintense nodule measuring 6 mm centered along the anterior medial LEFT thalamus. This correspo nds to the area of increased density seen on the prior CT from 2012. No interval change or progressio n. No adjacent edema. There are a few additional very small subcortical RIGHT frontal lobe white cecil er lesions which are very nonspecific and not unusual for this age group. Probably small vessel ische milo changes. No hemorrhage. Ventricles and extra-axial spaces are normal. Clivus and pituitary gland are normal. Visualized posterior fossa and brainstem are also normal. No enhancing lesions on the postcontrast imaging. Dural venous sinuses are normal. Dural venous sinuses are normal. Paranasal sinuses: Well aerated with no significant disease. Mastoid air cells: Normal. Calvarium and scalp: Normal. MR/MR head wo/w con [id number] IMPRESSION: 1. No acute infarct or enhancing mass. 2. T1 hyperintense nodule involving the LEFT thalamus measures 6 mm. No increa se in size or change since the CT head of 03/20/2012. Long-term stability indica ting benign etiology. Most consistent with a calcific deposit. No hemosiderin t o suggest hemorrhage on the susceptibility imaging. There is no enhancement.
== END 2023-02-06 08:51 | disposition home or self-care (01) ==
LOC: RAD 08:52
PROVIDERS: PCP Family Medicine; Visit Provider Family Medicine
DX: G93.89 Other specified disorders of brain (principal)
CPT/HCPCS: 70553; A9577

== ENCOUNTER → 2023-04-10 08:59 | Outpatient (BNVA) | payer BC, MEDICAID, SELFPAY | PROVIDERS: PCP Family Medicine; Visit Provider Psychiatry & Neurology Neurology | DX: G43.109 Migraine with aura, not intractable, without status migrainosus (principal) | CPT/HCPCS: 36415; 80053; 82306; 82607; 82746; 83090; 84439; 84443; 84481; 85025 ==

== ENCOUNTER 2023-06-13 08:30 | Outpatient (CLI) | payer BC, MEDICAID, SELFPAY ==
--- NOTE | 2023-06-13 08:30 | MR_ITS ---
WS: [id number] MRA HEAD TECHNIQUE: Axial 3-D TOF images obtained with axial images and axial, sagittal, and coronal 2-D refor matted images. CLINICAL INFORMATION: G43.019 - Migraine without aura, intractable, without sta... COMPARISON: MRI February 06, 2023 FINDINGS: Distal vertebral arteries are patent. Basilar artery is patent. Normal vascularity to the [employer] territo ry bilaterally. Both ICAs are patent at the skull base. Normal vascularity to the JAYDEN and MCA territories bilaterally . No evidence of proximal flow limiting stenosis or aneurysm. Patent anterior communicating artery. Tortuous cervical ICA is at the skull base. No evidence of high flow vascular malformation. Previousl y described 6 mm T1 hyperintense lesion appears stable in the LEFT thalamus. Differential considerati ons include low flow vascular malformation such as cavernoma or capillary telangiectasia. No evidence of recent hemorrhage. Recommend 12 month follow-up with MRI head without and with gadolinium enhance ment to confirm stability. MR/MR angio head wo con [id number] IMPRESSION: 1. Normal intracranial MRA. No evidence of proximal flow limiting stenosis or aneurysm. 2. Stable 6 mm T1 hyperintense lesion in the LEFT thalamus nonspecific. Consid er cavernoma or capillary telangiectasia. No evidence of recent hemorrhage or h igh flow vascular malformation. 3. Recommend 12 month follow-up with MRI head without and with gadolinium enha ncement to confirm stability.
== END 2023-06-13 08:31 | disposition home or self-care (01) ==
LOC: RAD 08:33
PROVIDERS: PCP Family Medicine; Visit Provider Specialist
DX: G43.019 Migraine without aura, intractable, without status migrainosus (principal); G93.89 Other specified disorders of brain
CPT/HCPCS: 70544